=== PATIENT | female | born 1975 | race Caucasian/White ===

== ENCOUNTER 2017-03-25 07:51 | Emergency (ER) | payer OTHER ==
[~2017-03-25] VITALS: Ht 162.6 cm; Wt 72.6 kg
[~2017-03-25 07:51] MED LIST: AFRIN15 ML NS; CEPHALEXIN 500500 M3 PO; LEVAQUIN 500 M500 MG PO; MEDROLDOSEPACK PO; MOBIC7.5 MG PO; PREDNISONE50 MG PO; PROAIR HFA8.5 GM INH; TRIAMCINOLONE A80 G2 TOP; VICODIN 5-3001 EACH PO; XANAX 0.25 MG0.25 MG PO
[2017-03-25] MEDS ORDERED: XANAX 0.5 MG0.5 MG PO (08:02)
[2017-03-25] MEDS ORDERED: HYDROCODON-ACE1 EAC7 PO (08:57)
[2017-03-25] MEDS ORDERED: ZOFRAN4 MG PO (09:10)
[2017-03-25 09:20] VITALS: BP 131/81
== END 2017-03-25 09:33 | disposition home or self-care (01) ==
LOC: M.ERS 07:51
DX: S40.011A Contusion of right shoulder, initial encounter (principal); F17.210 Nicotine dependence, cigarettes, uncomplicated; Z88.1 Allergy status to other antibiotic agents; W06.XXXA Fall from bed, initial encounter; Y93.89 Activity, other specified; Y92.89 Other specified places as the place of occurrence of the external cause; Y99.8 Other external cause status

== ENCOUNTER 2018-09-30 12:44 | Emergency (ER) | payer OTHER ==
[~2018-09-30] VITALS: Ht 162.6 cm; Wt 71.7 kg
[~2018-09-30 12:44] MED LIST changes: +HYDROCODON-ACE1 EAC7 PO; +XANAX 0.5 MG0.5 MG PO; +ZOFRAN4 MG PO
[2018-09-30 13:06] LABS: ABSOLUTE EOSINOPHILS 0.3 thou/uL (0.0-0.7); ABSOLUTE LYMPHOCYTES 2.5 thou/uL (0.8-5.3); ABSOLUTE MONOCYTES 0.5 thou/uL (0.0-1.2); ABSOLUTE NEUTROPHILS 6.7 thou/uL (1.6-8.1); BASOPHILS 0.3 %; EOSINOPHILS 2.7 %; HEMATOCRIT 44.3 % (37.0-47.0); HEMOGLOBIN 15.5 gm/dL (12.0-15.0); LYMPHOCYTES 25.1 %; MCH 33.1 pg (26.0-34.0); MCHC 34.9 g/dL (28.0-37.0); MCV 94.6 fL (80.0-100.0); MONOCYTES 5.1 %; MPV 7.4 fl. (7.2-11.1); NUCLEATED RBCS 0 /100WBC; PLATELET COUNT* 304 thou/uL (150-400); POLYS 66.8 %; RBC 4.68 mil/uL (4.20-5.00); RDW-CV 13.7 % (10.5-14.5); WBC 10.1 thou/uL (4.0-11.0)
[2018-09-30 13:15] LABS: ANION GAP 8 mmol/L (7-16); BUN 5 mg/dL (7-18); CALCIUM 8.9 mg/dL (8.5-10.1); CHLORIDE 105 mmol/L (98-107); CO2 27 mmol/L (21-32); CREATININE 0.7 mg/dL (0.6-1.3); GLUCOSE 118 mg/dL (70-99); POTASSIUM 3.6 mmol/L (3.5-5.1); SODIUM 140 mmol/L (136-145)
[2018-09-30 13:18] LABS: APTT 28.1 Seconds (25.0-31.3); PROTIME 10.5 Seconds (9.20-11.50)
[2018-09-30 13:28] LABS: ALBUMIN 3.3 g/dL (3.4-5.0); ALKALINE PHOSPHATASE 72 U/L (46-116); CK-MB MASS < 0.5 ng/mL (<0.5-3.6); LIPASE 103 U/L (73-393); MAGNESIUM 1.8 mg/dL (1.8-2.4); NT-PRO BRAIN NAT PEPTIDE 87 pg/mL (<300); SGOT 17 U/L (15-37); SGPT 19 U/L (30-65); TOTAL BILIRUBIN 0.5 mg/dL (<0.1-1.0); TOTAL PROTEIN 6.9 g/dL (6.4-8.2); TROPONIN-I LEVEL <0.06 ng/mL (<0.06)
[2018-09-30 13:31] VITALS: BP 100/65
--- NOTE | 2018-10-01 16:05 | EKG ---
[place] [address] ELECTROCARDIOGRAM REPORT Name: VIANEY BOLTON Room: [facility]#: [id number] Admission: 09/30/18 Attend Phys: Discharge: 09/30/18 Date of : 75 Report #: [id number] THIS REPORT FOR: //name// [facility] ED Test Date: 2018-09-30 Test Time: 12:49:51 Pat Name: VIANEY BOLTON Department: Room: Gender: F [employer]: ALLA : 1975 Requested By: Reji Morales Order Number: [id number] MD: Pranav Garza Measurements Intervals Vining Rate: 73 P: 55 ID: [id number] QRS: 27 QRSD: 87 T: 42 QT: 372 QTc: 410 Interpretive Statements Sinus rhythm Baseline wander in lead(s) V3 Compared to ECG 11/09/2016 17:37:26 No significant changes Electronically Signed On 10-01-2018 16:05:33 CDT by Pranav Garza [email or web address] <ELECTRONICALLY SIGNED> By: Pranav Garza MD, [facility] 10/01/18 1605 1249 1249 Pranav Garza MD, FACC /EPI
== END 2018-09-30 13:32 | disposition home or self-care (01) ==
LOC: M.ERS 12:44
PROVIDERS: Family Medicine
DX: R07.89 Other chest pain (principal); F17.210 Nicotine dependence, cigarettes, uncomplicated; Z98.51 Tubal ligation status; Z88.1 Allergy status to other antibiotic agents

== ENCOUNTER 2020-08-02 15:45 | Emergency (ER) | payer OTHER ==
[~2020-08-02] VITALS: Ht 162.6 cm; Wt 69.8 kg
[2020-08-02 16:02] LABS: URINE BILIRUBIN NEGATIVE (Negative); URINE BLOOD NEGATIVE (Negative); URINE CLARITY CLEAR; URINE COLOR YELLOW; URINE GLUCOSE-RANDOM NEGATIVE (Negative); URINE KETONES NEGATIVE (Negative); URINE LEUKOCYTES-REFLEX NEGATIVE (Negative); URINE NITRITE-REFLEX NEGATIVE (Negative); URINE PROTEIN NEGATIVE (Negative); URINE SPECIFIC GRAVITY 1.025 (1.005-1.030); URINE UROBILINOGEN 0.2 E.U./dl (0.2-1.0)
[2020-08-02 16:34] LABS: ABSOLUTE BASOPHILS 0.1 thou/uL (0.0-0.2); ABSOLUTE EOSINOPHILS 0.3 thou/uL (0.0-0.7); ABSOLUTE LYMPHOCYTES 3.1 thou/uL (0.8-5.3); ABSOLUTE MONOCYTES 0.8 thou/uL (0.0-1.2); ABSOLUTE NEUTROPHILS 6.7 thou/uL (1.6-8.1); BASOPHILS 1.2 %; EOSINOPHILS 3.1 %; HEMOGLOBIN 15.3 gm/dL (12.0-15.0); MCH 32.9 pg (26.0-34.0); MCHC 34.8 g/dL (28.0-37.0); MCV 94.5 fL (80.0-100.0); MPV 7.2 fl. (7.2-11.1); NUCLEATED RBCS 0 /100WBC; PLATELET COUNT* 296 thou/uL (150-400); POLYS 60.7 %; RBC 4.65 mil/uL (4.20-5.00); RDW-CV 13.5 % (10.5-14.5)
[2020-08-02 16:39] LABS: CALCIUM 8.6 mg/dL (8.5-10.1); CREATININE 0.8 mg/dL (0.6-1.3); POTASSIUM 3.8 mmol/L (3.5-5.1)
[2020-08-02 16:43] LABS: ALBUMIN 3.9 g/dL (3.4-5.0); TOTAL BILIRUBIN 0.7 mg/dL (<0.1-1.0); TOTAL PROTEIN 7.3 g/dL (6.4-8.2)
[2020-08-02 17:57] LABS: APTT 27.9 Seconds (25.0-31.3); PROTIME 10.9 Seconds (9.20-11.50)
[2020-08-02] MEDS ORDERED: NORCO5 PO (19:08)
[2020-08-02 19:31] VITALS: BP 120/69
== END 2020-08-02 19:31 | disposition home or self-care (01) ==
LOC: M.ERS 15:45
PROVIDERS: Physician Assistant
DX: S39.011A Strain of muscle, fascia and tendon of abdomen, initial encounter (principal); F17.210 Nicotine dependence, cigarettes, uncomplicated; Z98.51 Tubal ligation status; Z88.1 Allergy status to other antibiotic agents; X58.XXXA Exposure to other specified factors, initial encounter; Y93.89 Activity, other specified; Y92.89 Other specified places as the place of occurrence of the external cause; Y99.8 Other external cause status

== ENCOUNTER → 2020-10-19 | Outpatient (CLI) | payer OTHER ==
[~2020-10-19] MED LIST changes: +NORCO5 PO
== END ==
LOC: M.RAD 11:31
PROVIDERS: ATTEND Internal Medicine
DX: Z12.31 Encounter for screening mammogram for malignant neoplasm of breast (principal); N64.89 Other specified disorders of breast

== ENCOUNTER 2021-02-15 16:32 | Emergency (ER) | payer OTHER | END 2021-02-15 17:25 | disposition left against medical advice (07) | LOC: M.ERS 16:32 | DX: M54.2 Cervicalgia (principal); Z53.21 Procedure and treatment not carried out due to patient leaving prior to being seen by health care provider ==